=== PATIENT | female | born 2000 | race Caucasian/White ===

== ENCOUNTER 2019-12-03 18:30 | Emergency (ER) | payer BC, OTHER ==
[2019-12-03] MEDS ORDERED: SODIUM CHLORIDE 0.9% 1,000 ML IV ONE (18:51)
[2019-12-03] MEDS ORDERED: ONDANSETRON 4 MG/2 ML VIAL IVP STA (18:51)
[2019-12-03] MEDS ORDERED: MORPHINE SULFATE 4 MG/ML SYRINGE IV STA (18:51)
[2019-12-03 20:10] LABS: Appearance,Urine Clear (Clear); Bilirubin,Urine Negative (Negative); Blood,Urine Negative (Negative); Color,Urine Light Yellow; Glucose,Urine (UA) Negative (Negative); Ketones,Urine Negative (Negative); Leukocyte Esterase,Urine Negative (Negative); Nitrite,Urine Negative (Negative); Protein,Urine Trace (Negative); Specific Gravity,Urine 1.002 (1.001-1.035); Urobilinogen,Urine <2.0 mg/dL (<2.0)
[2019-12-03 20:18] LABS: Basophils # (A) 0.1 k/uL (0-0.2); Basophils % (A) 1 %; Eosinophils # (A) 0.2 k/uL (0-0.7); Eosinophils % (A) 3 %; HCT 44.3 % (34.0-46.0); HGB 14.5 gm/dL (11.4-16.0); Lymphocytes # (A) 2.5 k/uL (1.0-4.8); Lymphocytes % (A) 26 %; MCH 29.2 pg (25.0-35.0); MCHC 32.8 g/dL (31.0-37.0); MCV 88.8 fL (80.0-100.0); Monocytes # (A) 0.5 k/uL (0-1.0); Monocytes % (A) 5 %; Neutrophils # (A) 6.2 k/uL (1.3-7.7); Neutrophils % (A) 65 %; Platelet Count 311 k/uL (150-450); RBC 4.98 m/uL (3.80-5.40); WBC 9.6 k/uL (3.8-10.6)
--- NOTE | 2019-12-03 20:21 | ED ---
General Adult HPI - General Source: patient, RN notes reviewed, old records reviewed Mode of arrival: ambulatory Limitations: no limitations <Jonathon Serrato - Last Filed: 12/03/19 20:20> <Mel Patterson - Last Filed: 12/04/19 07:28> - General Chief complaint: Abdominal Pain Stated complaint: Appendicitis Time Seen by Provider: 12/03/19 18:38 - History of Present Illness Initial comments: 19-year-old female patient presents to ED for chief complaint of abdominal pain. Patient reports that her abdominal pain is around her periumbilical region and also down her right lower quadrant region. She denies any chance of being . She states has been ongoing for 3 days. She denies any other complaints at this time. Systemic: Pt denies fatigue, fever/chills, rash. Pt denies weakness, night sweats, weight loss. Neuro: Pt denies headache, visual disturbances, syncope or pre-syncope. HEENT: Pt denies ocular discharge or irritation, otalgia, rhinorrhea, pharyngitis or notable lymphadenopathy. Cardiopulmonary: Pt denies chest pain, SOB, heart palpitations, dyspnea on exertion. Abdominal/GI: Pt denies n/v/d. : Pt denies dysuria, burning w/ urination, frequency/urgency. Denies new onset urinary or bowel incontinence. MSK: Pt denies myalgia, loss of strength or function in extremities. Neuro: Pt denies new onset weakness, paresthesias. (Jonathon Serrato) - Related Data Allergies Allergy/AdvReac Type Severity Reaction Status Date / Time amoxicillin Allergy Rash/Hives Verified 12/03/19 18:36 Penicillins Allergy Rash/Hives Verified 12/03/19 18:36 Review of Systems ROS Other: All systems not noted in ROS Statement are negative. <Jonathon Serrato - Last Filed: 12/03/19 20:20> ROS Other: All systems not noted in ROS Statement are negative. <Mel Patterson - Last Filed: 12/04/19 07:28> ROS Statement: Those systems with pertinent positive or pertinent negative responses have been documented in the HPI. Past Medical History Past Medical History: Asthma History of Any Multi-Drug Resistant Organisms: None Reported Past Surgical History: No Surgical Hx Reported Past Psychological History: Bipolar, Depression Smoking Status: Current every day smoker Past Alcohol Use History: None Reported Past Drug Use History: None Reported <Jonathon Serrato - Last Filed: 12/03/19 20:20> General Exam Limitations: no limitations <Jonathon Serrato - Last Filed: 12/03/19 20:20> - General Exam Comments Initial Comments: Constitutional: NAD, AOX3, Pt has pleasant affect. HEENT: NC/AT, trachea midline, neck supple, External ears appear normal, without discharge. Mucous membranes moist. Eyes PERRLA, There is no scleral icterus. No pallor noted. Cardiopulmonary: RRR, no murmurs, rubs or gallops, no JVD noted. Lungs CTAB in anterior and posterior mccormack. No peripheral edema. Abdominal exam: Abdomen soft and non-distended. Abdomen moderately tender to p alpation periumbilical right lower quadrant region.. Bowel sounds active in LLQ. No hepatosplenomegaly. No ecchymosis Neuro: CN II-XII grossly intact. No nuchal rigidity. No raccon eyes, no lord sign,MSK: . Full active ROM in upper and lower extremities, 5/5 stregnth. (Jonathon Serrato) Course Vital Signs 12/03/19 12/03/19 12/03/19 18:31 20:36 22:00 Temperature 98.7 F Pulse Rate 98 85 89 Respiratory 18 18 20 Rate Blood Pressure 138/83 148/95 136/87 O2 Sat by Pulse 100 100 99 Oximetry 12/03/19 12/04/19 23:28 00:03 Temperature 98.0 F Pulse Rate 101 H 98 Respiratory 20 18 Rate Blood Pressure 137/83 129/80 O2 Sat by Pulse 98 98 Oximetry Medical Decision Making - Lab Data Result diagrams: 12/03/19 19:55 <Jonathon Serrato - Last Filed: 12/03/19 20:20> - Lab Data Result diagrams: 12/03/19 19:55 12/03/19 19:55 <Mel Patterson - Last Filed: 12/04/19 07:28> - Medical Decision Making 19-year-old female patient presents to ED for chief complaint of abdominal pain. Patient what has not a 3 days in his periumbilical right lower quadrant region. Patient was under stable, afebrile. Physical exam doesn't display tenderness in the periumbilical and right lower quadrant region. Patient signed out to Dr. Watson pending imaging. (Jonathon Serrato) Patient care was signed out to me, 19-year-old female with abdominal pain radiating to the right lower quadrant. Patient has developed diarrhea since arriving in the emergency department. At the time of signout patient was pending computed tomography scan which resulted with no signs of acute appendicitis. There was noted to be fluid in the bowels consistent with diarrhea. These results were discussed with the patient. Patient discharged home in stable condition. (Mel Patterson) - Lab Data Lab Results 12/03/19 12/03/19 12/03/19 Range/Units 19:45 19:45 19:55 WBC 9.6 (3.8-10.6) k/uL RBC 4.98 (3.80-5.40) m/uL Hgb 14.5 (11.4-16.0) gm/dL Hct 44.3 (34.0-46.0) % MCV 88.8 (80.0-100.0) fL MCH 29.2 (25.0-35.0) pg MCHC 32.8 (31.0-37.0) g/dL RDW 12.0 (11.5-15.5) % Plt Count 311 (150-450) k/uL Neutrophils % 65 % Lymphocytes % 26 % Monocytes % 5 % Eosinophils % 3 % Basophils % 1 % Neutrophils # 6.2 (1.3-7.7) k/uL Lymphocytes # 2.5 (1.0-4.8) k/uL Monocytes # 0.5 (0-1.0) k/uL Eosinophils # 0.2 (0-0.7) k/uL Basophils # 0.1 (0-0.2) k/uL Sodium (137-145) mmol/L Potassium (3.5-5.1) mmol/L Chloride (98-107) mmol/L Carbon Dioxide (22-30) mmol/L Anion Gap mmol/L BUN (7-17) mg/dL Creatinine (0.52-1.04) mg/dL Est GFR (CKD-EPI)AfAm (>60 ml/min/1.73 sqM) Est GFR (CKD-EPI)NonAf (>60 ml/min/1.73 sqM) Glucose (74-99) mg/dL Plasma Lactic Acid Tad (0.7-2.0) mmol/L Calcium (8.4-10.2) mg/dL Total Bilirubin (0.2-1.3) mg/dL AST (14-36) U/L ALT (4-34) U/L Alkaline Phosphatase (38-126) U/L C-Reactive Protein (<10.0) mg/L Total Protein (6.3-8.2) g/dL Albumin (3.5-5.0) g/dL Urine Color Light Yellow Urine Appearance Clear (Clear) Urine pH 6.0 (5.0-8.0) Ur Specific [place] 1.002 (1.001-1.035) Urine Protein Trace H (Negative) Urine Glucose (UA) Negative (Negative) Urine Ketones Negative (Negative) Urine Blood Negative (Negative) Urine Nitrite Negative (Negative) Urine Bilirubin Negative (Negative) Urine Urobilinogen <2.0 (<2.0) mg/dL Ur Leukocyte Esterase Negative (Negative) Urine HCG, Qual Not Detected (Not Detectd) 12/03/19 12/03/19 12/03/19 Range/Units 19:55 19:55 19:55 WBC (3.8-10.6) k/uL RBC (3.80-5.40) m/uL Hgb (11.4-16.0) gm/dL Hct (34.0-46.0) % MCV (80.0-100.0) fL MCH (25.0-35.0) pg MCHC (31.0-37.0) g/dL RDW (11.5-15.5) % Plt Count (150-450) k/uL Neutrophils % % Lymphocytes % % Monocytes % % Eosinophils % % Basophils % % Neutrophils # (1.3-7.7) k/uL Lymphocytes # (1.0-4.8) k/uL Monocytes # (0-1.0) k/uL Eosinophils # (0-0.7) k/uL Basophils # (0-0.2) k/uL Sodium 138 (137-145) mmol/L Potassium 4.0 (3.5-5.1) mmol/L Chloride 104 (98-107) mmol/L Carbon Dioxide 23 (22-30) mmol/L Anion Gap 11 mmol/L BUN 9 (7-17) mg/dL Creatinine 0.78 (0.52-1.04) mg/dL Est GFR (CKD-EPI)AfAm >90 (>60 ml/min/1.73 sqM) Est GFR (CKD-EPI)NonAf >90 (>60 ml/min/1.73 sqM) Glucose 88 (74-99) mg/dL Plasma Lactic Acid Tad 1.0 (0.7-2.0) mmol/L Calcium 9.8 (8.4-10.2) mg/dL Total Bilirubin 0.6 (0.2-1.3) mg/dL AST 26 (14-36) U/L ALT 33 (4-34) U/L Alkaline Phosphatase 73 (38-126) U/L C-Reactive Protein 11.4 H (<10.0) mg/L Total Protein 7.6 (6.3-8.2) g/dL Albumin 4.6 (3.5-5.0) g/dL Urine Color Urine Appearance (Clear) Urine pH (5.0-8.0) Ur Specific [place] (1.001-1.035) Urine Protein (Negative) Urine Glucose (UA) (Negative) Urine Ketones (Negative) Urine Blood (Negative) Urine Nitrite (Negative) Urine Bilirubin (Negative) Urine Urobilinogen (<2.0) mg/dL Ur Leukocyte Esterase (Negative) Urine HCG, Qual (Not Detectd) Disposition <Jonathon Serrato J - Last Filed: 12/03/19 20:20> Is patient prescribed a controlled substance at d/c from ED?: No <Mel Patterson - Last Filed: 12/04/19 07:28> Clinical Impression: Abdominal pain Disposition: HOME SELF-CARE Condition: Stable Instructions (If sedation given, give patient instructions): Abdominal Pain (ED) Referrals: Stewart Cowan MD [Primary Care Provider] - 1-2 days
[2019-12-03 20:40] LABS: ALT 33 U/L (4-34); AST 26 U/L (14-36); African American GFR (CKD) >90 (>60 ml/min/1.73 sqM); Albumin 4.6 g/dL (3.5-5.0); Alkaline Phosphatase 73 U/L (38-126); Anion Gap 11 mmol/L; Blood Urea Nitrogen 9 mg/dL (7-17); Calcium 9.8 mg/dL (8.4-10.2); Carbon Dioxide 23 mmol/L (22-30); Chloride 104 mmol/L (98-107); Glucose 88 mg/dL (74-99); Non-African American GFR(CKD) >90 (>60 ml/min/1.73 sqM); Sodium 138 mmol/L (137-145); Total Bilirubin 0.6 mg/dL (0.2-1.3); Total Protein 7.6 g/dL (6.3-8.2)
--- NOTE | 2019-12-03 21:26 | US ---
EXAMINATION TYPE: US abdomen APPY DATE OF EXAM: 12/03/2019 COMPARISON: NONE CLINICAL HISTORY: r/o torsion and appy . APPENDIX AP Diameter (normal < 6mm): 2 mm Measured outer wall to outer wall. Is the appendix seen in its entirety from the proximal cecum to distal end: no Is an appendicolith present: no Is there inflammatory changes or free fluid present: no Appendix not seen with certainty. IMPRESSION: 1. Nonvisualization of the appendix. Clinical management of any suspected appendicitis will be requir ed.
--- NOTE | 2019-12-03 21:59 | US ---
EXAMINATION TYPE: US pelvic complete DATE OF EXAM: 12/03/2019 COMPARISON: NONE CLINICAL HISTORY: r/o torsion and appy . TECHNIQUE: Transabdominal (TA). Date of LMP: Patient on control consecutive, no menses EXAM MEASUREMENTS: Uterus: 7.0 x 2.7 x 4.6 cm Endometrial Stripe: 0.5 cm Right Ovary: 2.5 x 1.9 x 1.5 cm Left Ovary: 2.2 x 1.3 x 1.0 cm 1. Uterus: Anteverted wnl 2. Endometrium: wnl 3. Right Ovary: wnl 4. Left Ovary: wnl Spectral, color and waveform doppler imaging shows good arterial and venous flow within the ovaries ; there is no evidence for ovarian torsion. 5. Bilateral Adnexa: wnl 6. Posterior cul-de-sac: wnl IMPRESSION: Normal pelvic ultrasound
--- NOTE | 2019-12-03 23:37 | CT ---
EXAMINATION TYPE: CT abdomen pelvis w con DATE OF EXAM: 12/03/2019 COMPARISON: None HISTORY: Abd Pain CT DLP: 563.40 mGycm Automated exposure control for dose reduction was used. CONTRAST: Performed with IV Contrast, patient injected with 100 mL of Isovue 300. Images were obtained from the diaphragm to the floor the pelvis with IV contrast. Lung bases are clear. There is no pleural effusion. Stomach appears intact. Liver spleen pancreas gal lbladder appear normal. Bile ducts are not dilated. There is no adrenal mass. Kidneys show satisfactory contrast opacification. Ureters are not dilated. There is no hydronephrosis. Delayed images show normal renal excretion. There is no retroperitoneal a denopathy. Bladder distends smoothly. There is no inguinal hernia. Uterus appears normal. There is no free fluid in the pelvis. There is mildly distended large bowel loops with air-fluid levels. Small b owel pattern is fairly normal. There is no free air. There is no ascites. Appendix is inferior and pa rtly filled with air and appears normal. Lumbar vertebra have normal alignment. Disc spaces are normal. Posterior elements are intact. Bony pe lvis appears intact. IMPRESSION: Large bowel fluid suggestive of diarrhea. No free air. Normal appendix.
[2019-12-04 00:04] VITALS: BP 129/80; PULSE 98; RESP 18; TEMP 98
== END 2019-12-04 00:03 | disposition home or self-care (01) ==
LOC: EC 18:30
DX: R10.33 Periumbilical pain (principal); R10.31 Right lower quadrant pain; R19.7 Diarrhea, unspecified; F17.200 Nicotine dependence, unspecified, uncomplicated; Z88.0 Allergy status to penicillin
CPT/HCPCS: 36415; 80053; 83605; 85025; 86140; 81003; 81025; 93975; 76705; 76856; 74177; 99284; 96374; 96361; J2270; J2405; Q9967